=== PATIENT | female | born 1995 | race Two or more races ===

== ENCOUNTER 2016-03-18 23:14 | Emergency (ER) | payer BC, OTHER ==
[2016-03-18 23:21] VITALS: BP 119/71
== END 2016-03-19 01:00 | disposition left against medical advice (07) ==
LOC: ER 23:14
DX: Z53.21 Procedure and treatment not carried out due to patient leaving prior to being seen by health care provider (principal)

== ENCOUNTER 2016-03-22 11:21 | Emergency (ER) | payer BC, OTHER ==
--- NOTE | 2016-03-22 11:47 | ER Document Report ---
ED Medical Screen (RME) - General Chief Complaint: Vaginal Bleeding Stated Complaint: VAGINAL BLEEDING Notes: 20 yo 7 weeks gestation, c/o vaginal bleeding since 2300 last night. no clots. no cramping. no significant PMHx TRAVEL OUTSIDE OF THE [place] IN LAST 30 DAYS: No - Related Data Allergies/Adverse Reactions: No Known Allergies Allergy (Verified 03/22/16 11:30) Past Medical History - Social History Chew tobacco use (# tins/day): No Frequency of alcohol use: None Drug Abuse: None Past Surgical History: Reports: Hx Adenoidectomy, Hx Orthopedic Surgery - right knee 2014, Hx Tonsillectomy - Immunizations Hx Diphtheria, Pertussis, Tetanus Vaccination: Yes Physical Exam - Vital signs Vitals: Temp Pulse Resp BP Pulse Ox 97.9 F 109 H 14 125/75 99 03/22/16 11:35 03/22/16 11:35 03/22/16 11:35 03/22/16 11:35 03/22/16 11:35 Course - Vital Signs Vital signs: Temp Pulse Resp BP Pulse Ox 97.9 F 109 H 14 125/75 99 03/22/16 11:35 03/22/16 11:35 03/22/16 11:35 03/22/16 11:35 03/22/16 11:35
[2016-03-22 12:18] LABS: APPEARANCE,URINE CLEAR; BILIRUBIN,URINE NEGATIVE (NEGATIVE); GLUCOSE, URINE NEGATIVE (NEGATIVE); KETONES,URINE NEGATIVE (NEGATIVE); LEUKOCYTE ESTERASE,URINE NEGATIVE (NEGATIVE); NITRITE,URINE NEGATIVE (NEGATIVE); PROTEIN,URINE NEGATIVE (NEGATIVE); URINE SPECIFIC GRAVITY 1.004; UROBILINOGEN,URINE NEGATIVE mg/dL (<2.0)
--- NOTE | 2016-03-22 12:38 | ER Document Report ---
ED General - General Chief Complaint: Vaginal Bleeding Stated Complaint: VAGINAL BLEEDING Time seen by provider: 12:37 Mode of Arrival: Ambulatory Information source: Patient Notes: 20-year-old female 4 para 0 (one termination, 3 miscarriages usually in the first trimester) presents with vaginal bleeding in the first trimester. Patient denies any abdominal pain, nausea, vomiting. The bleeding started last night. TRAVEL OUTSIDE OF THE [place] IN LAST 30 DAYS: No - HPI Onset: This morning Onset/Duration: Gradual Quality of pain: No pain Severity: None Pain Level: Denies Associated symptoms: None Exacerbated by: Denies Relieved by: Denies Similar symptoms previously: No Recently seen / treated by doctor: No - Related Data Allergies/Adverse Reactions: No Known Allergies Allergy (Verified 03/22/16 11:30) Past Medical History - General Information source: Patient - Social History Smoking Status: Never Smoker Chew tobacco use (# tins/day): No Frequency of alcohol use: None Drug Abuse: None Lives with: Family Family History: Reviewed & Not Pertinent Patient has suicidal ideation: No Patient has homicidal ideation: No - Medical History Medical History: Negative Past Surgical History: Reports: Hx Adenoidectomy, Hx Orthopedic Surgery - right knee 2015, Hx Tonsillectomy - Immunizations Hx Diphtheria, Pertussis, Tetanus Vaccination: Yes Review of Systems - Review of Systems Constitutional: No symptoms reported EENT: No symptoms reported Cardiovascular: No symptoms reported Respiratory: No symptoms reported Gastrointestinal: No symptoms reported Genitourinary: No symptoms reported Female Genitourinary: See HPI Musculoskeletal: No symptoms reported Skin: No symptoms reported Hematologic/Lymphatic: No symptoms reported Neurological/Psychological: No symptoms reported Physical Exam - Vital signs Vitals: Temp Pulse Resp BP Pulse Ox 97.9 F 109 H 14 125/75 99 03/22/16 11:35 03/22/16 11:35 03/22/16 11:35 03/22/16 11:35 03/22/16 11:35 Notes: Physical exam: GENERAL: 20-year-old female, alert and oriented 3, no acute distress HEAD: Atraumatic, normocephalic. EYES: Pupils equal round and reactive to light, extraocular movements intact, sclera anicteric, conjunctiva are normal. ENT: TMs normal, nares patent, oropharynx clear without exudates. Moist mucous membranes. NECK: Normal range of motion, supple without lymphadenopathy or JVD. LUNGS: Breath sounds clear to auscultation bilaterally and equal. No wheezes rales or rhonchi. HEART: Regular rate and rhythm without murmurs, rubs or gallops. ABDOMEN: Soft, nontender, normoactive bowel sounds. No guarding, no rebound. No masses appreciated. Pelvic exam: Deferred EXTREMITIES: Normal range of motion, no pitting or edema. No clubbing or cyanosis. NEUROLOGICAL: Cranial nerves II through XII grossly intact. Normal speech, normal gait. PSYCH: Normal mood, normal affect. SKIN: Warm, Dry, normal turgor, no rashes or lesions noted. Course - Vital Signs Vital signs: Temp Pulse Resp BP Pulse Ox 97.9 F 109 H 14 125/75 99 03/22/16 11:35 03/22/16 11:35 03/22/16 11:35 03/22/16 11:35 03/22/16 11:35 - Laboratory Laboratory results interpreted by me: 03/22/16 03/22/16 11:55 11:55 Beta HCG, Quant [id number] H Urine Blood SMALL H Discharge - Discharge Clinical Impression: threatened miscarriage Condition: Stable Disposition: HOME, SELF-CARE Instructions: Bleeding During Early ([facility]) Additional Instructions: Recommendations: For constipation: Anything natural an [id number] and not too aggressive. He wanted to avoid excessive straining. Assessment lifting or bending. No intercourse Follow-up with the OB doctor in the next few days: Bring a copy of today's blood type, beta hCG Quant, results of the ultrasound. Return to the ER for worsening bleeding or passing clots.
[2016-03-22 16:54] VITALS: BP 121/73
== END 2016-03-22 15:48 | disposition home or self-care (01) ==
LOC: ER 11:21
DX: O20.0 Threatened abortion (principal)
CPT/HCPCS: 36415; 76817; 81001; 84702; 86900; 86901; 93976; 99284